=== PATIENT | female | born 1955 | race Caucasian/White ===

== ENCOUNTER 2017-04-26 11:06 | Emergency (ER) | payer OTHER ==
[~2017-04-26] VITALS: Ht 182.9 cm; Wt 79.7 kg
[2017-04-26 11:07] VITALS: BP 109/66
== END 2017-04-26 11:48 | disposition home or self-care (01) ==
LOC: ED 11:45
DX: L25.9 Unspecified contact dermatitis, unspecified cause (principal)
CPT/HCPCS: 99283